=== PATIENT | female | born 1945 | race Caucasian/White ===

== ENCOUNTER 2021-07-05 22:23 | Emergency (ER) | payer MEDICARE, SELFPAY ==
--- NOTE | ~2021-07-05 | XR_ITS ---
EXAMINATION: XR thoracic spine 2V DATE: 07/05/2021 23:41 INDICATION: Thoracic back pain TECHNIQUE: AP, lateral and lateral swimmer's views of the thoracic spine were obtained. COMPARISON: None. FINDINGS: There is no fracture, dislocation, or subluxation of the thoracic spine although sensitivit y is limited by osteopenia. The vertebral body heights are maintained. There is mild loss of interver tebral disc space height at several levels in the thoracic spine. A surgical neck fracture of the rig ht humerus is again noted. IMPRESSION: 1. Mild thoracic spondylosis. 2. Right proximal humerus fracture. Reviewed, dictated and finalized at location F. FINISHER
--- NOTE | ~2021-07-05 | XR_ITS ---
EXAMINATION: XR shoulder RT min 2V INDICATION: Right shoulder pain, initial encounter TECHNIQUE: Three views of the right shoulder are submitted. COMPARISON: None FINDINGS: There is an acute, traumatic, closed, comminuted surgical neck fracture of the proximal hum erus. The distal fracture fragment is approximately migrated. 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 Soft tissues are unremarkable. IMPRESSION: 1. Acute, comminuted surgical neck fracture of the right humerus. Reviewed, dictated and finalized at location F. ETING EDUCATION TEACHER
--- NOTE | ~2021-07-05 | XR_ITS ---
EXAMINATION: XR elbow RT min 3V INDICATION: Right elbow pain TECHNIQUE: Four views of the right elbow were obtained. COMPARISON: 10/03/2006 FINDINGS: There is internal stabilization hardware of the proximal ulna. No acute fracture is identif ied. 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 No joint effusion is present. IMPRESSION: 1. No acute osseous abnormality. Reviewed, dictated and finalized at location F. MATE
[2021-07-05 22:23] VITALS: PULSE 88; RESP 16; TEMP 36.6; O2SAT 92
--- NOTE | 2021-07-05 23:36 | ED.GENADULT ---
HPI - General Adult General Chief complaint: Fall Stated complaint: fell, collar bone deformity Time Seen by Provider: 07/05/21 22:27 History of Present Illness HPI narrative: Patient 76-year-old female who presents the emergency department with chief complaint of right shoulder pain. Patient reports that she tripped over the leg of a stool and fell striking her right shoulder and right upper extremity. Patient denies head injury denies loss of consciousness reports that she is not on any blood thinners patient does report she has a little bit of discomfort in her mid back. The patient denies paresthesias denies focal neurological deficit. Related Data Allergies Allergy/AdvReac Type Severity Reaction Status Date / Time No Known Allergies Allergy Mild Verified 07/05/21 22:34 Review of Systems Review of Systems: A 10 system review of systems was completed on the patient and is negative except for what is stated in the HPI. Nursing and ancillary documentation was reviewed. [facility] Social History Social History Alcohol intake: current Exam Narrative: GENERAL: Well-appearing, well-nourished, and in no acute distress. HEAD: Normocephalic, atraumatic. EYES: PERRLA and EOMI. ENT: Nares clear, no rhinorrhea or epistaxis. Mucous membranes moist. NECK: Supple. CHEST: Clear to auscultation. No respiratory distress. HEART: Regular rate and rhythm. No murmur heard. Normal peripheral pulses. ABDOMEN: Soft, nontender, nondistended, normal active bowel sounds. EXTREMITIES: Normal range of motion. No edema. Tenderness to palpation in the right clavicle region and shoulder. SKIN: Warm, dry, no rash. NEURO: No focal deficits. Alert and oriented x3. PSYCH: Normal mood and affect. Course Vital Signs Vital signs: Vital Signs Temperature 36.6 C 07/05/21 22:23 Pulse Rate 88 07/05/21 22:23 Respiratory Rate 16 07/05/21 22:23 Pulse Oximetry 92 07/05/21 22:23 Temperature 36.6 C 07/05/21 22:23 Pulse Rate 88 07/05/21 22:23 Respiratory Rate 16 07/05/21 22:23 Pulse Oximetry 92 07/05/21 22:23 Medical Decision Making Vital Signs Vital Signs: Vital Signs Temperature 36.6 C 07/05/21 22:23 Pulse Rate 88 07/05/21 22:23 Respiratory Rate 16 07/05/21 22:23 Pulse Oximetry 92 07/05/21 22:23 Temperature 36.6 C 07/05/21 22:23 Pulse Rate 88 07/05/21 22:23 Respiratory Rate 16 07/05/21 22:23 Pulse Oximetry 92 07/05/21 22:23 Discharge Plan Discharge Clinical Impression: Closed fracture of neck of right humerus Qualifiers: Encounter type: initial encounter Qualified Code(s): S42.211A - Unspecified displaced fracture of surgical neck of right humerus, initial encounter for closed fracture Patient Disposition: Home, Self-Care Condition: Stable Instructions: Antibiotic Form, Arm Fracture in Adults (ED), How to Use a Sling (ED) Prescriptions: New ondansetron 4 mg tablet,disintegrating 4 mg PO Q8H PRN (Reason: nausea and vomiting) Qty: 10 RF: 0 hydrocodone-acetaminophen 5-325 mg tablet 1 tablet PO Q6H PRN (Reason: pain) 3 Days Qty: 12 RF: 0 Follow-up/Referrals: Clovis Leslie MD [Physician] - Jose Montenegro MD [Primary Care Provider] - Time of Disposition: 00:30
[2021-07-06 01:08] VITALS: BP 148/72; PULSE 86; RESP 18; O2SAT 97
[2021-07-06] MEDS: HYDROcodone/acetaminophen (*CRX) 5-325 MG TABLET 1 TAB PO (01:12)
[2021-07-06] MEDS: ONDANSETRON INJ 4 MG/2 ML VIAL IV PUSH (01:12)
== END 2021-07-06 02:13 | disposition home or self-care (01) ==
PROVIDERS: Emergency Provider Emergency Medicine; PCP Family Medicine
DX: S42.211A Unspecified displaced fracture of surgical neck of right humerus, initial encounter for closed fracture (principal); W01.0XXA Fall on same level from slipping, tripping and stumbling without subsequent striking against object, initial encounter
CPT/HCPCS: 72070; 73030; 73080; 96374; 99284; A4565; A9270; J2405